=== PATIENT | male | born 1955 | race Caucasian/White ===

== ENCOUNTER 2023-07-18 08:30 | Observation (INO) ==
[2023-07-18] MEDS ORDERED: Tranexamic Acid 1 GM/100ML BAG 2,000 MG/200 ML BAG IV ONE (09:35)
[2023-07-18] MEDS ORDERED: ceFAZolin 2 GM in NS PREMIX 2 GM/100 ML BAG IVPB ONE (09:35)
[2023-07-18] MEDS ORDERED: Famotidine IV 10 MG/ML 2 ml VIAL (20 mg) ONE (09:35)
[2023-07-18] MEDS: Famotidine IV 10 MG/ML 2 ml VIAL (20 mg) IV ONE (09:56)
[2023-07-18] MEDS: Lactated Ringers 1000 ml BAG 1,000 ML IV SCH ×2 (09:57→17:30)
[2023-07-18] MEDS ORDERED: Midazolam 2 mg/2 ml VIAL 1 mg/ml 2 ml VIAL (2 mg) ONE ×2 (10:12→10:51)
[2023-07-18] MEDS ORDERED: fentaNYL 100 mcg/2 ml 50 MCG/ML VIAL ONE ×2 (10:12→10:51)
[2023-07-18] MEDS ORDERED: Propofol 10 MG/ML 20 ML BTL ONE ×3 (10:12→14:31)
[2023-07-18 10:33] LABS: Rapid COVID-19 Molecular Undetected (Undetected)
[2023-07-18] MEDS ORDERED: ROPIVACAINE 5 MG/ML 30 ML BTL (0.5%) ONE ×2 (10:51→11:21)
[2023-07-18] MEDS ORDERED: fentaNYL 100 mcg/2 ml 50 MCG/ML VIAL IV PRN (10:56)
[2023-07-18] MEDS ORDERED: Naloxone 0.4 mg VIAL 0.4 mg/ml 1 ml VIAL IV PRN (10:56)
[2023-07-18] MEDS ORDERED: Ondansetron ODT 4 mg TAB 4 MG TAB PO PRN (14:14)
[2023-07-18] MEDS ORDERED: Ondansetron 4 mg VIAL 2 MG/ML 2 ml VIAL IV PRN (14:14)
[2023-07-18] MEDS ORDERED: Lactulose 30 ml UDC PO PRN (14:14)
[2023-07-18] MEDS ORDERED: Magnesium Hydroxide LIQ 30 ML UDC PO PRN (14:14)
[2023-07-18] MEDS ORDERED: Morphine 2 MG/ML SYRINGE IV PRN (14:14)
[2023-07-18] MEDS ORDERED: Bupivacaine-MPF SPINAL 7.5 MG/ML - 2ML AMP ONE (14:31)
[2023-07-18] MEDS: ceFAZolin 1 GM ADVAN 1 GM in NS 0.9% 50 ML 50 ML IVPB SCH (20:06)
[2023-07-18] MEDS: Magnesium Hydroxide LIQ 30 ML UDC PO SCH (20:09)
[2023-07-19 05:37] LABS: Hematocrit 38.9 % (38-53); Hemoglobin 13.8 g/dL (13.2-16.3); Mean Platelet Volume 8.1 fL (7.5-11.2); Platelet Count 218 10^3/uL (150-450)
[2023-07-19 05:50] LABS: Calcium 8.4 mg/dL (8.6-10.3); Creatinine, Serum 0.86 mg/dL (0.67-1.17); Potassium 4.2 mmol/L (3.5-5.0); eGFR CKD-EPI 94.9 (>60)
[2023-07-19] MEDS: Buffered Lidocaine 1% SYRIN 1 ml INTRADERM ONE (08:01)
[2023-07-19] MEDS: Aspirin EC 81 mg TAB.EC (enteric coated) PO SCH (08:06)
[2023-07-19] MEDS: Vitamin THERAPEUTIC TAB PO SCH (08:06)
[2023-07-19 10:56] VITALS: BP 132/58
== END 2023-07-19 13:20 | disposition home or self-care (01) ==
LOC: SSU → INTOOBSV 09:10 → AA 09:10 → SUATTDRO 14:14
PROVIDERS: ADMIT Orthopaedic Surgery Adult Reconstructive Orthopaedic Surgery; ATTEND Orthopaedic Surgery Adult Reconstructive Orthopaedic Surgery